=== PATIENT | female | born 2000 | race Caucasian/White ===

== ENCOUNTER 2019-11-07 10:51 | Emergency (ER) | payer BC ==
--- NOTE | 2019-11-07 11:29 | EDM.PDOC ---
ED HPI GENERAL MEDICAL PROBLEM - General Stated Complaint: 7 WEEKS /BLEEDING Time Seen by Provider: 11/07/19 11:15 Source of Information: Reports: Patient, RN, RN Notes Reviewed History Limitations: Reports: No Limitations - History of Present Illness INITIAL COMMENTS - FREE TEXT/NARRATIVE: Patient presents to ER with complaint of vaginal spotting/bleeding. Patient states last menstrual period was September 20, 2019, making her approximately 7 weeks gestation. States she has had a positive test at home, but has not been seen in the clinic as of yet. Patient denies any medical past history. Patient states that she did have intercourse yesterday. Patient states it has been some light bleeding, states she has not been wearing a pad or soaking a pad. Patient states she first had some brown thick discharge, and then the bleeding was a little more bright. Patient states this is her first . Denies any STIs in the past, states she has had 1 partner. Onset: Today ED ROS GENERAL - Review of Systems Review Of Systems: Comprehensive ROS is negative, except as noted in HPI. ED EXAM - Physical Exam Exam: See Below Exam Limited By: No Limitations General Appearance: Alert, WD/WN, No Apparent Distress Eye Exam: Bilateral Eye: EOMI, Normal Inspection Ears: Normal External Exam, Hearing Grossly Normal Nose: Normal Inspection Throat/Mouth: Normal Inspection, Normal Voice, No Airway Compromise Head: Atraumatic, Normocephalic Neck: Normal Inspection, Supple, Non-Tender, Full Range of Motion Respiratory/Chest: No Respiratory Distress, Lungs Clear, Normal Breath Sounds, No Accessory Muscle Use, Chest Non-Tender Cardiovascular: Normal Peripheral Pulses, Regular Rate, Rhythm, No Edema, No Gallop, No JVD, No Murmur, No Rub GI/Abdominal Exam: Normal Bowel Sounds, Soft, Non-Tender, No Organomegaly, No Distention, No Abnormal Bruit, No Mass, Pelvis Stable Rectal Exam: Deferred (Female) Exam: Normal External Exam, Normal Speculum Exam, Vaginal Bleeding ( very scant bright red blood at the cervix) Heart Tones: Not Potter Movement: Not Appreciated Back Exam: Normal Inspection, Full Range of Motion, NT Extremities: Normal Inspection, Normal Range of Motion, Non-Tender, Normal Capillary Refill, No Pedal Edema Neurological: Alert, Oriented, CN II-XII Intact, Normal Cognition, Normal Gait, Normal Reflexes, No Motor/Sensory Deficits Psychiatric: Normal Affect, Normal Mood Skin Exam: Warm, Dry, Intact, Normal Color, No Rash Lymphatic: No Adenopathy Course - Vital Signs Last Recorded V/S: Last Vital Signs Temp 98.1 F 11/07/19 11:33 Pulse 95 11/07/19 11:33 Resp 18 11/07/19 11:33 BP 138/88 11/07/19 11:33 Pulse Ox 99 11/07/19 11:33 - Orders/Labs/Meds Labs: Laboratory Tests 11/07/19 11/07/19 11/07/19 Range/Units 11:00 11:00 11:00 WBC (5.0-10.0) 10^3/uL RBC (4.2-5.4) 10^6/uL Hgb (12.0-16.0) g/dL Hct (37.0-47.0) % MCV (80-100) fL MCH (27.0-34.0) pg MCHC (33.0-35.0) g/dL Plt Count (150-450) 10^3/uL Neut % (Auto) (42.2-75.2) % Lymph % (Auto) (20.5-50.1) % [place] % (Auto) (2-8) % Eos % (Auto) (1.0-3.0) % Baso % (Auto) (0.0-1.0) % Sodium (136-145) mmol/L Potassium (3.5-5.1) mmol/L Chloride (98-107) mmol/L Carbon Dioxide (21-32) mmol/L Anion Gap (7-13) mEq/L BUN (7-18) mg/dL Creatinine (0.55-1.02) mg/dL Est Cr Clr Drug Dosing mL/min Estimated GFR (MDRD) BUN/Creatinine Ratio (No establ ref range) Glucose (74-99) mg/dL Calcium (8.5-10.1) mg/dL Total Bilirubin (0.2-1.0) mg/dL AST (15-37) U/L ALT (14-59) U/L Alkaline Phosphatase (46-116) U/L Total Protein (6.4-8.2) g/dL Albumin (3.4-5.0) g/dL Globulin Albumin/Globulin Ratio HCG, Quant (0-6) mIU/mL Urine Color Yellow (YELLOW) Urine Appearance Cloudy (CLEAR) Urine pH 6.5 (5.0-9.0) Ur Specific [employer] 1.025 (1.005-1.030) Urine Protein Trace H (NEGATIVE) Urine Glucose (UA) Negative (NEGATIVE) Urine Ketones Negative (NEGATIVE) Urine Occult Blood Small H (NEGATIVE) Urine Nitrite Negative (NEGATIVE) Urine Bilirubin Negative (NEGATIVE) Urine Urobilinogen 0.2 (0.2-1.0) mg/dL Ur Leukocyte Esterase Large H (NEGATIVE) Urine RBC 0-5 /HPF Urine WBC Semi-packed H (0-5/HPF) /HPF Ur Epithelial Cells Few (NOT SEEN) /HPF Urine Bacteria Many H (0-FEW/HPF) /HPF Urine Mucus Not seen (NOT SEEN) /LPF Urine HCG, Qual Positive Urine Opiates Screen Negative (NEGATIVE) Ur Oxycodone Screen Negative (NEGATIVE) Urine Methadone Screen Negative (NEGATIVE) Ur Barbiturates Screen Negative (NEGATIVE) U Tricyclic Antidepress Negative (NEGATIVE) Ur Phencyclidine Scrn Negative (NEGATIVE) Ur Amphetamine Screen Negative (NEGATIVE) U Methamphetamines Scrn Negative (NEGATIVE) Urine MDMA Screen Negative (NEGATIVE) U Benzodiazepines Scrn Negative (NEGATIVE) Urine Cocaine Screen Negative (NEGATIVE) U Marijuana (THC) Screen Negative (NEGATIVE) 11/07/19 11/07/19 11/07/19 Range/Units 11:43 11:43 11:43 WBC 8.8 (5.0-10.0) 10^3/uL RBC 4.44 (4.2-5.4) 10^6/uL Hgb 13.5 (12.0-16.0) g/dL Hct 38.8 (37.0-47.0) % MCV 87.4 (80-100) fL MCH 30.4 (27.0-34.0) pg MCHC 34.8 (33.0-35.0) g/dL Plt Count 198 (150-450) 10^3/uL Neut % (Auto) 74.0 (42.2-75.2) % Lymph % (Auto) 18.3 L (20.5-50.1) % [place] % (Auto) 7.3 (2-8) % Eos % (Auto) 0.3 L (1.0-3.0) % Baso % (Auto) 0.1 (0.0-1.0) % Sodium 134 L (136-145) mmol/L Potassium 3.6 (3.5-5.1) mmol/L Chloride 100 (98-107) mmol/L Carbon Dioxide 27 (21-32) mmol/L Anion Gap 10.6 (7-13) mEq/L BUN 14 (7-18) mg/dL Creatinine 0.96 (0.55-1.02) mg/dL Est Cr Clr Drug Dosing 87.51 mL/min Estimated GFR (MDRD) > 60 BUN/Creatinine Ratio 14.6 (No establ ref range) Glucose 88 (74-99) mg/dL Calcium 9.4 (8.5-10.1) mg/dL Total Bilirubin 0.3 (0.2-1.0) mg/dL AST 16 (15-37) U/L ALT 26 (14-59) U/L Alkaline Phosphatase 73 (46-116) U/L Total Protein 7.2 (6.4-8.2) g/dL Albumin 3.9 (3.4-5.0) g/dL Globulin 3.3 Albumin/Globulin Ratio 1.2 HCG, Quant 06825 H (0-6) mIU/mL Urine Color (YELLOW) Urine Appearance (CLEAR) Urine pH (5.0-9.0) Ur Specific [employer] (1.005-1.030) Urine Protein (NEGATIVE) Urine Glucose (UA) (NEGATIVE) Urine Ketones (NEGATIVE) Urine Occult Blood (NEGATIVE) Urine Nitrite (NEGATIVE) Urine Bilirubin (NEGATIVE) Urine Urobilinogen (0.2-1.0) mg/dL Ur Leukocyte Esterase (NEGATIVE) Urine RBC /HPF Urine WBC (0-5/HPF) /HPF Ur Epithelial Cells (NOT SEEN) /HPF Urine Bacteria (0-FEW/HPF) /HPF Urine Mucus (NOT SEEN) /LPF Urine HCG, Qual Urine Opiates Screen (NEGATIVE) Ur Oxycodone Screen (NEGATIVE) Urine Methadone Screen (NEGATIVE) Ur Barbiturates Screen (NEGATIVE) U Tricyclic Antidepress (NEGATIVE) Ur Phencyclidine Scrn (NEGATIVE) Ur Amphetamine Screen (NEGATIVE) U Methamphetamines Scrn (NEGATIVE) Urine MDMA Screen (NEGATIVE) U Benzodiazepines Scrn (NEGATIVE) Urine Cocaine Screen (NEGATIVE) U Marijuana (THC) Screen (NEGATIVE) Departure - Departure Time of Disposition: 14:05 Disposition: Home, Self-Care 01 Condition: Fair Clinical Impression: First-trimester bleeding, Threatened UTI (urinary tract infection) Qualifiers: Urinary tract infection type: acute cystitis Hematuria presence: without hematuria Qualified Code(s): N30.00 - Acute cystitis without hematuria - Discharge Information *PRESCRIPTION DRUG MONITORING PROGRAM REVIEWED*: No *COPY OF PRESCRIPTION DRUG MONITORING REPORT IN PATIENT SHAKIR: No Instructions: Urinary Tract Infection, Adult, [id number], Threatened Miscarriage, [id number], Vaginal Bleeding During , First Trimester, [id number] Referrals: PCP,None [Ordering Only Provider] - Forms: ED Department Discharge Additional Instructions: RX: Cephalexin Drink plenty of water May use Tylenol as directed for cramping or pain Follow up with your primary care facility Return to ER if bleeding increases Sepsis Event Note - Focused Exam Date Exam was Performed: 11/10/19 Time Exam was Performed: 13:19
[2019-11-07 12:11] LABS: ANION GAP 10.6 mEq/L (7-13); CHLORIDE,CL 100 mmol/L (98-107); SODIUM,NA 134 mmol/L (136-145)
--- NOTE | 2019-11-07 13:57 | US ---
EXAMINATION: OB Ltd 1 or More Fetus SEX: Female AGE: 19 years CLINICAL HISTORY: 19-year-old "gravid" (serum hCG 86,551) female emergency department (ER) with vaginal bleeding. LMP 20 September 2019 and estimated date of delivery is 26 June 2020. Interpretation: Midline uterus retroverted with clearly demonstrated central gestational sac that measures 2.29 cm (7 weeks 3 days). Viable IUP with [place]-rump length measurement 6.4 mm approximates a 6 week 4 day gestation. Regular rapid heart rate 152 bpm documented. Yolk sac present. Tiny 1.2 cm diameter cyst right adnexa may represent corpus luteum of . Right ovary measures 3.5 cm L x 2.9 cm W x 2.5 cm AP. Left ovary measures 2.8 cm L x 2.3 cm W x 1.9 cm AP. No free fluid in the cul-de-sac. CONCLUSION: Single live 6 week 4 day intrauterine gestation retroverted uterus.
== END 2019-11-07 14:03 | disposition home or self-care (01) ==
LOC: DL.ED 10:51
DX: O20.0 Threatened abortion (principal); O23.11 Infections of bladder in pregnancy, first trimester; Z3A.01 Less than 8 weeks gestation of pregnancy
CPT/HCPCS: 36415; 76815; 80053; 80305-QW; 81001; 81025; 84702; 85025; 87086; 87088; 87186; 87210; 99284-25

== ENCOUNTER 2020-02-07 15:47 | Emergency (ER) | payer BC ==
[2020-02-07] MEDS ORDERED: cefTRIAXone 1 GM, Lidocaine 1% 2.1 ML IM ONE ×2 (17:01)
--- NOTE | 2020-02-07 17:06 | EDM.PDOC ---
Scribed by Cherelle Abrams 02/07/20 [id number] for Sharad Fernandez MD ED HPI GENERAL MEDICAL PROBLEM - General Chief Complaint: Flank Pain Stated Complaint: RIGHT KIDNEY PAIN 20 WEEKS PREG [phone] Time Seen by Provider: 02/07/20 16:15 Source of Information: Reports: Patient, RN, RN Notes Reviewed History Limitations: Reports: No Limitations - History of Present Illness INITIAL COMMENTS - FREE TEXT/NARRATIVE: Patient presents to ED by POV with right kidney/flank pain that began yesterday. Patient reports history of right kidney surgeries/health issues. Patient reports she is exactly 20 weeks , first . FHR doppler @ 168. Patient reports UTI 2 weeks ago, finished antibiotics, admits to some dysuria Onset Date: 02/06/20 Duration: Constant Location: Reports: Other (right flank) Quality: Reports: Ache Severity: Moderate Improves with: Reports: None Worsens with: Reports: None Associated Symptoms: Reports: No Other Symptoms Right Flank Pain Score (Numeric/FACES): 8 ED ROS GENERAL - Review of Systems Review Of Systems: Comprehensive ROS is negative, except as noted in HPI. ED EXAM, RENAL/ - Physical Exam Exam: See Below Exam Limited By: No Limitations General Appearance: Alert, WD/WN, No Apparent Distress Eye Exam: Bilateral Eye: Normal Inspection Nose: Normal Inspection Throat/Mouth: Normal Inspection Head: Atraumatic, Normocephalic Respiratory/Chest: No Respiratory Distress Cardiovascular: Regular Rate, Rhythm, No Edema GI/Abdominal: Normal Bowel Sounds, Soft, Non-Tender, Other (Gravid to level of umbilicus. heart tones 168 by hand held doppler.) (Female) Exam: Deferred Rectal (Female) Exam: Deferred Back Exam: CVA Tenderness (R). No: CVA Tenderness (L), Vertebral Tenderness Extremities: Normal Inspection Neurological: Alert, Oriented, No Motor/Sensory Deficits Psychiatric: Normal Mood Skin Exam: Warm, Dry, Intact, Normal Color, No Rash Course - Vital Signs Last Recorded V/S: Last Vital Signs Temp 99.1 F 02/07/20 16:07 Pulse 102 H 02/07/20 16:07 Resp 18 02/07/20 16:07 BP 135/84 02/07/20 16:07 Pulse Ox 100 02/07/20 16:07 - Orders/Labs/Meds Orders: Active Orders 24 hr Category Date Time Status CBC WITH AUTO DIFF [HEME] Stat Lab 02/07/20 16:39 Received COMPREHENSIVE METABOLIC PN,CMP [CHEM] Stat Lab 02/07/20 16:39 Received CULTURE URINE [RM] Stat Lab 02/07/20 16:29 Received Labs: Laboratory Tests 02/07/20 Range/Units 16:29 Urine Color Yellow (YELLOW) Urine Appearance Cloudy (CLEAR) Urine pH 7.0 (5.0-9.0) Ur Specific [place] >= 1.030 (1.005-1.030) Urine Protein >=300 H (NEGATIVE) Urine Glucose (UA) Negative (NEGATIVE) Urine Ketones Negative (NEGATIVE) Urine Occult Blood Moderate H (NEGATIVE) Urine Nitrite Positive H (NEGATIVE) Urine Bilirubin Negative (NEGATIVE) Urine Urobilinogen 0.2 (0.2-1.0) mg/dL Ur Leukocyte Esterase Small H (NEGATIVE) Urine RBC Semi-packed H /HPF Urine WBC Semi-packed H (0-5/HPF) /HPF Ur Epithelial Cells Few (NOT SEEN) /HPF Urine Bacteria Moderate H (0-FEW/HPF) /HPF Urine Mucus Few H (NOT SEEN) /LPF Meds: Medications Discontinued Medications Generic Name Dose Route Start Last Admin Trade Name Freq PRN Reason Stop Dose Admin Ceftriaxone Sodium 1 gm/ 0 gm 02/07/20 17:01 Lidocaine HCl 2.1 ml IM 02/07/20 17:02 ONETIME ONE Departure - Departure Time of Disposition: 17:04 Disposition: Home, Self-Care 01 Condition: Good Clinical Impression: Pyelonephritis affecting in second trimester - Discharge Information *PRESCRIPTION DRUG MONITORING PROGRAM REVIEWED*: Not Applicable *COPY OF PRESCRIPTION DRUG MONITORING REPORT IN PATIENT SHAKIR: Not Applicable Instructions: Pyelonephritis During Forms: ED Department Discharge Additional Instructions: Rx: Cephalexin 500mg Drink plenty of water. Follow up with Dr. Casiano as scheduled. Return to ER if worse at any time. Sepsis Event Note (ED) - Evaluation Sepsis Screening Result: No Definite Risk - Focused Exam Vital Signs: Vital Signs Temp Pulse Resp BP Pulse Ox 02/07/20 16:07 99.1 F 102 H 18 135/84 100 - My Orders Last 24 Hours: My Active Orders 02/07/20 16:29 CULTURE URINE [RM] Stat 02/07/20 16:39 CBC WITH AUTO DIFF [HEME] Stat COMPREHENSIVE METABOLIC PN,CMP [CHEM] Stat - Assessment/Plan Last 24 Hours: My Active Orders 02/07/20 16:29 CULTURE URINE [RM] Stat 02/07/20 16:39 CBC WITH AUTO DIFF [HEME] Stat COMPREHENSIVE METABOLIC PN,CMP [CHEM] Stat I have read and agree with the documentation that has been completed regarding this visit. By signing this record, I attest that the documentation was completed in my physical presence and is an accurate record of the encounter.
[2020-02-07 17:34] LABS: ANION GAP 13.6 mEq/L (7-13); CHLORIDE,CL 99 mmol/L (98-107); SODIUM,NA 135 mmol/L (136-145)
== END 2020-02-07 17:28 | disposition home or self-care (01) ==
LOC: DL.ED 15:47
DX: O23.02 Infections of kidney in pregnancy, second trimester (principal); N12 Tubulo-interstitial nephritis, not specified as acute or chronic; Z3A.20 20 weeks gestation of pregnancy
CPT/HCPCS: 36415; 80053; 81001; 85025; 87086; 96372; 99284; J0696; J2001; 99283

== ENCOUNTER 2020-06-27 04:07 | Inpatient (IN) | payer BC ==
[2020-06-27] MEDS ORDERED: Carboprost Tromethamine 250 MCG/1 ML Amp IM PRN (05:13)
[2020-06-27] MEDS ORDERED: Lactated Ringers 1,000 ML IV ONE (05:13)
[2020-06-27] MEDS ORDERED: Methylergonovine 0.2 MG/1 ML Amp IM PRN (05:13)
[2020-06-27] MEDS ORDERED: Sodium Chloride 0.9% 10 ML Syringe FLUSH PRN (05:13)
[2020-06-27] MEDS ORDERED: fentaNYL 100 MCG/2 ML SDV IVPUSH PRN (05:13)
[2020-06-27] MEDS ORDERED: Misoprostol 400 MCG (4 X 100 MCG TAB) RECTAL PRN (05:13)
[2020-06-27] MEDS ORDERED: Acetaminophen 325 MG Tab PO PRN (05:13)
[2020-06-27] MEDS ORDERED: Tranexamic Acid 1,000 MG in Sodium Chloride 0.9% 100 ML IV PRN (05:13)
[2020-06-27] MEDS ORDERED: Lidocaine 1% 30 ML SDV INJECT PRN (05:13)
[2020-06-27] MEDS ORDERED: Ondansetron 4 MG/2 ML SDV IVPUSH PRN (05:13)
[2020-06-27] MEDS ORDERED: Oxytocin/Normal Saline 30 UNIT/500 ML BAG IV SCH (05:15)
[2020-06-27] MEDS: Lactated Ringers 1,000 ML IV SCH ×6 (05:35→20:29)
[2020-06-27] MEDS ORDERED: Magnesium Sulfate/Water 4 GM/100 ML BAG IV ONE (05:57)
--- NOTE | 2020-06-27 05:59 | OBOUT ---
DATE: 06/27/2020 TIME: 4:20 to 4:40 REASON FOR NST: 1. Intrauterine at 40-1/7 weeks confirmed with 6-4/7 week ultrasound. 2. Active labor with contractions and cervical change. 3. Gestational hypertension versus transient hypertension versus preeclampsia. 4. Meconium-stained fluid after artificial rupture of membranes. 5. GBS negative. 6. G1, P0. NST INTERPRETATION: During this time period, heart tone baseline is approximately 135 to 140 and at least two 15 x 15 beats per minute accelerations, making this strip reactive. Also, noted to be reassuring. Tocometer reveals potential 7 to 8 contractions felt by the patient. ASSESSMENT: 1. Nonstress test, reactive and reassuring. 2. Tocometer reveals contractions. Blood pressure 144/73, heart rate 93, the patient is afebrile. She is breathing through her contractions. Shortly after NST was performed, vaginal exam revealed her to be 4.5 cm with 100% effacement, +1 station, vertex suspected. Artificial rupture of membranes done after discussion with the patient while she was using her nitrox for the vaginal exam revealing meconium-stained fluid. history and physical updated from epic visit which was yesterday and includes now having contractions every 2.5 minutes starting at 2 am and worsening over time without bleeding, leaking, headaches, visual changes or upper abdominal pain or nausea, vomiting fatigue. PLAN: We will do PIH panel due to the elevated blood pressure. Artificial rupture of membranes was done as above. She is continuing with nitrox for pain control and we will discuss future pain control as needed. The patient understands, agrees to above treatment plan. Please see orders for further details. [facility] /[id number] MTDD
[2020-06-27] MEDS ORDERED: Magnesium Sulfate/Water 100 ML IV ONE (06:15)
[2020-06-27] MEDS: Magnesium Sulfate/Water 20 GM/500 ML BAG IV SCH ×2 (06:39→17:01)
[2020-06-27] MEDS ORDERED: fentaNYL 100 MCG/2 ML SDV ONE (07:32)
[2020-06-27] MEDS ORDERED: EPINEPHrine 1 MG/1 ML Amp ONE ×2 (07:33→07:35)
[2020-06-27] MEDS ORDERED: fentaNYL 100 MCG/2 ML SDV ITHECAL ONE (07:35)
--- NOTE | 2020-06-27 08:19 | PCM.PRNOTE ---
- Free Text/Narrative Note: Requested to provide analgesia to full term patient in severe pain. Upon entering the room, patient is sitting on edge of bed complaining of severe abdominal/pelvic pain and discomfort. Procedure was discussed with patient including adverse outcomes and expectations. Pt consented to analgesia, SAB/IT. Pt placed into a proper sitting position. Landmarks for SAB/IT were identified and marked. Hands were washed and appropriate PPE was applied. Back was prepped with betadine x3. A sterile, transparent, fenestrated drape was applied. Excess betadine was removed. Using 3 mL of a 1% lidocaine solution, a skin wheel was placed at the L2/L3 interspace. A 24 ga (4 inch) Pencan spinal needle was inserted until positive for CSF. Negative for heme or paresthesias. Injected fentanyl 30 mcg, sufentanil 25 mcg, and 7.5 mg of a 0.75% bupivacaine solution with an epi wash. Pt was placed left lateral tilt position for approximately 20 minutes. There were zero complications or adverse outcomes. Will continue to monitor. Procedure Date & Time: 06/27/20 [id number]
[2020-06-27 10:19] LABS: ANION GAP 16.2 mEq/L (7-13); CHLORIDE,CL 103 mmol/L (98-107); SODIUM,NA 136 mmol/L (136-145)
--- NOTE | 2020-06-27 11:19 | PN ---
DATE: 06/27/2020 SUBJECTIVE: The patient is comfortable status post her intrathecal. No nausea, vomiting, headaches, visual changes, or upper abdominal pain. OBJECTIVE: VITAL SIGNS: Last blood pressure 120/71, heart rate 85. heart tones in the 130s to 140s range watching for variability. Tocometer reveals contractions every 2-1/2 to 3 minutes. LABORATORY DATA: Labs returned earlier with the [facility] panel, did reveal white cell count of 12.3, hemoglobin 12.5, platelets of 122. Creatinine of 1.2. Mag level 1.5, AST 159, and ALT of 322 with an LDH of 196. Urine protein-creatinine ratio of 380 which would correspond to 380 mg per 24 hours estimate. ASSESSMENT AND PLAN: Intrauterine at 40 and 1/7 weeks confirmed with 6 and 4/7 weeks ultrasound, admitted in active labor with preeclampsia with severe features, qualifies due to the creatinine level as well as increased LFTs, may be a HELLP variant with platelets being on the lower end but not less than 100,000 at this time. Therefore, the patient was started on magnesium sulfate and followed closely. She did receive her intrathecal. Last nurse evaluation revealed to be 7 to 8 cm. Repeat labs were done due to concerns with decreased urine output with catheter placed and a bolus was given prior to the intrathecal. Another bolus was given at the time of dictation. Repeat labs, white cell count 17.1, hemoglobin 11.7, platelets stable at 121. Creatinine actually has improved at 1.13. Mag level was 3.3. AST and ALT have decreased to 148 and 297 respectively. PLAN: We will continue to follow urine output closely. Watch for any other signs and symptoms that would be concerning and follow status closely as well. [facility] /[id number]
[2020-06-27] MEDS ORDERED: ePHEDrine 50 MG/ML SDV IVPUSH PRN (13:06)
[2020-06-27] MEDS ORDERED: ceFAZolin 2 GM in Premix Bag 1 BAG IV ONE (13:06)
[2020-06-27] MEDS ORDERED: Naloxone 2 MG/2 ML Syringe IVPUSH PRN (13:06)
[2020-06-27] MEDS ORDERED: diphenhydrAMINE 50 MG/ML SDV IVPUSH PRN (13:06)
[2020-06-27] MEDS ORDERED: Citric Acid/Sodium Citrate Solution 30 ML Cup PO ONE (13:06)
[2020-06-27] MEDS ORDERED: Oxytocin/Normal Saline 60 UNIT/1,000 ML BAG ONE (13:16)
[2020-06-27] MEDS ORDERED: Morphine PF 1 MG/ML Amp ITHECAL ONE (13:32)
[2020-06-27] MEDS ORDERED: Ondansetron 4 MG/2 ML SDV IV ONE (13:32)
[2020-06-27] MEDS ORDERED: Ketorolac 30 MG/ML SDV IVPUSH ONE (13:32)
[2020-06-27] MEDS ORDERED: Metoclopramide 10 MG/2 ML SDV IV ONE (13:32)
[2020-06-27] MEDS ORDERED: Dexamethasone 4 MG/ML SDV IV ONE (13:32)
[2020-06-27] MEDS ORDERED: Misoprostol 400 MCG (4 X 100 MCG TAB) ONE (13:53)
[2020-06-27] MEDS ORDERED: Carboprost Tromethamine 250 MCG/1 ML Amp ONE (13:53)
--- NOTE | 2020-06-27 15:31 | PN ---
DATE: 06/27/2020 SUBJECTIVE: The patient is starting to feel contractions minimally just described as cramping and tightening in her belly. She denies any headaches, visual changes, or upper abdominal pain, recent nausea, vomiting, or decreased oral intake over the last couple of days. OBJECTIVE: Vital Signs: Last temperature was 100.2. Genitourinary: Vaginal exam reveals her to have an anterior rim. heart tones in the 130s to 140s with a change in variability noted with vaginal exam. Tocometer reveals contractions every 2-1/2 to 3 minutes. ASSESSMENT AND PLAN: Nearing second stage of labor in a G1, P0 at 40 and 1/7 weeks, GBS negative, with meconium-stained fluid, gestational thrombocytopenia, and preeclampsia with severe features. We have been watching her urine output closely. She just completed a bolus of 500 mL. We will continue to follow this as well and did discuss with the patient considering pushing in the near future as she has had some difficulty with vaginal exams with pain and doing this while her intrathecal is still working. We will follow closely at this point in time. Wait until she is complete and proceed from there. [facility] /[id number]
--- NOTE | 2020-06-27 16:01 | PN ---
DATE: 06/27/2020 SUBJECTIVE: The patient has been starting to feel her contractions. She feels the urge to push and has been pushing for now over 2 hours. OBJECTIVE: heart tones: Occasional accelerations are noted with exams with heart tones in the 140s range. Tocometer reveals contractions every 2-1/2 to 4 minutes apart. Pitocin at 2 milliunits per minute, now has been stopped. Vital signs: Last blood pressure 145/73, heart rate 81, temperature 99.2. Genitourinary: Vaginal exam reveals to be complete with good pushing effort, but arrest of descent with no evidence of descent over the last 2 hours with marked caput occurring. ASSESSMENT AND PLAN: Intrauterine at 40-1/7 weeks, confirmed with 6- 4/7 weeks' ultrasound, with arrest of descent, nearing prolonged second stage of labor with preeclampsia with severe features, meconium-stained fluid, gestational thrombocytopenia in a G1, P0, who is GBS negative. I did discuss with the patient calling in the OR crew at this time and proceeding with section when they arrive as it will be nearing prolonged second stage of labor and there has been no evidence of descent despite great pushing efforts. We will continue to follow maternal- status closely in the interim. Of note, urine output has significantly increased and this was noted after a positional change with the pushing and the patient feeling a click type sensation and suspect decreased urine output related to vertex position and the Chen catheter. I did discuss with the patient and her male partner proceeding with section. They both understand agree and wish to proceed. I did discuss with them risks benefits, alternatives, and complications of section including, but not limited to, infection; bleeding; damage to organs such as bowel, bladder, tubes, uterus, ovaries, and sometimes fetus; rarely needing a blood transfusion or further surgery; and even rare maternal or . She understands and agrees and wished to proceed. Verbal and written consents were obtained and questions were answered. We will proceed to the OR as soon as crew is ready and available. [facility] /[id number] DONAOT
[2020-06-27] MEDS: Simethicone 80 MG Tab.Chew PO SCH ×2 (18:10→20:28)
[2020-06-27] MEDS: Ketorolac 30 MG/ML SDV IVPUSH SCH (19:52)
[2020-06-27] MEDS: Docusate Sodium 100 MG Cap PO PRN (20:28)
[2020-06-28] MEDS: Ketorolac 30 MG/ML SDV IVPUSH SCH ×2 (01:47→07:58)
[2020-06-28] MEDS: Magnesium Sulfate/Water 20 GM/500 ML BAG IV SCH (04:53)
[2020-06-28] MEDS: Docusate Sodium 100 MG Cap PO PRN ×2 (07:58→21:01)
[2020-06-28] MEDS: Prenatal Multivitamin with Calcium/Folic Acid/Iron Tab PO SCH ×2 (07:58→09:02)
[2020-06-28] MEDS: Ferrous Sulfate 325 MG Tab PO SCH (07:58)
[2020-06-28] MEDS: Simethicone 80 MG Tab.Chew PO SCH ×4 (07:59→21:01)
[2020-06-28] MEDS: Acetaminophen/oxyCODONE 325-5 MG Tab PO PRN ×4 (08:15→21:01)
[2020-06-28 12:29] LABS: ANION GAP 11.3 mEq/L (7-13)
[2020-06-28] MEDS ORDERED: Benzocaine/Menthol 20%-0.5% Spray 56 GM Canister TOP PRN (16:30)
[2020-06-28] MEDS: Ibuprofen 800 MG Tab PO PRN (16:52)
[2020-06-29] MEDS: Acetaminophen/oxyCODONE 325-5 MG Tab PO PRN ×5 (01:27→22:12)
[2020-06-29] MEDS: Ibuprofen 800 MG Tab PO PRN ×3 (01:27→22:06)
--- NOTE | 2020-06-29 03:38 | PN ---
DATE: 06/28/2020 Postop day #1. SUBJECTIVE: The patient is tolerating p.o. Has not ambulated much because of being on magnesium sulfate. Chen is still in place. States pain is under control. Denies any headaches, visual changes, upper abdominal pain, chest pain, shortness of breath, or lightheadedness. No immediate concerns by nurses overnight and through this morning. OBJECTIVE: VITAL SIGNS: Temperature 98.2, heart rate 82, blood pressure 106/64, respiratory rate 16. LUNGS: Clear to auscultation bilaterally. HEART: S1 and S2. Regular rate and rhythm. ABDOMEN: Firm uterus around the umbilicus. Aquacel dressing appears minimally shadowed on the right, which has been stable since last night. EXTREMITIES: Trace pedal edema. No calf pain. KARLA hose are on. I's and O's, Chen output has been adequate and excellent. LABORATORY DATA: This morning white cell count 12.6, hemoglobin 8.4, platelets 112. Recheck at noon; white cell count 11.6, hemoglobin 8.9, and platelets 116. With afternoon labs revealing a creatinine stable at 1.2, uric acid elevated 7.1, magnesium level of 4.9, AST and ALT 151 and 233 which are stable. Ammonia less than 10. LDH at 241. ASSESSMENT AND PLAN: Postop day #1, status post primary low-transverse C- section with 2-layer uterine closure, with arrest of descent nearing prolonged second stage of labor, and subsequent macrosomia with the baby weighing 10 pounds and 14 ounces, with severe preeclampsia/HELLP variant. I's and O's have been adequate. She is nearing 24 hours from delivery. We will stop magnesium sulfate. Follow for signs and symptoms of concerns with the preeclampsia and we will do serial labs with repeat labs tomorrow morning, with the CBC, CMP to follow. I did discuss plans with the patient. She understands and agrees with the above treatment plan. We will follow clinically and closely. [facility] /[id number]
[2020-06-29] MEDS: Prenatal Multivitamin with Calcium/Folic Acid/Iron Tab PO SCH (08:03)
[2020-06-29] MEDS: Ferrous Sulfate 325 MG Tab PO SCH (08:03)
[2020-06-29] MEDS: Simethicone 80 MG Tab.Chew PO SCH ×4 (08:03→22:05)
[2020-06-29] MEDS: Docusate Sodium 100 MG Cap PO PRN ×2 (08:03→22:05)
--- NOTE | 2020-06-29 13:53 | PN ---
DATE: 06/29/2020 SUBJECTIVE: The patient is tolerating p.o., was ambulating, urinating, passing flatus. She denies any headaches, visual changes, or upper abdominal pain. Her lower extremity swelling/ankle swelling persists. OBJECTIVE: Vital Signs: Temperature 92, heart rate 90, blood pressure 122/80, and respiratory rate 16. Lungs: Clear to auscultation bilaterally. Heart: S1, S2. Regular rate and rhythm. Pelvic: Firm uterus at the umbilicus. Aquacel dressing reveals continued shadowing on the right, nothing increasing in size. Otherwise, dry and intact. Urine output has been adequate. Extremities: Trace pedal edema. KARLA hose on. LABORATORY DATA: White cell count 10.1, hemoglobin 8.4, stable from yesterday, platelets increased to 118,000. CMP was done, notable for creatinine at 1.29. AST decreasing down to 103, ALT down to 197, alkaline phosphatase down to 130. ASSESSMENT/PLAN: Postop day #2, status post primary low transverse with 2-layer uterine closure complicated by suspected HELLP syndrome with variant with severe preeclampsia, gestational thrombocytopenia, increased liver function tests, and increased creatinine. I did discuss this with the patient. Creatinine still is hovering around 1.2 range. 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 Therefore, we will continue to follow closely. Urine output has been adequate. No other signs or symptoms of issues with kidneys and her GFR is rated around 67 to 72 by lab criteria. PLAN: We will continue to follow clinically and closely. CBC and CMP tomorrow. Possible discharge tomorrow discussed. She understands and agrees with the above treatment plan. [facility] /[id number]
[2020-06-30 06:14] LABS: ANION GAP 13.2 mEq/L (7-13); CHLORIDE,CL 105 mmol/L (98-107); SODIUM,NA 138 mmol/L (136-145)
[2020-06-30] MEDS: Acetaminophen/oxyCODONE 325-5 MG Tab PO PRN ×2 (06:39→11:18)
[2020-06-30] MEDS: Docusate Sodium 100 MG Cap PO PRN (08:01)
[2020-06-30] MEDS: Ferrous Sulfate 325 MG Tab PO SCH (08:01)
[2020-06-30] MEDS: Prenatal Multivitamin with Calcium/Folic Acid/Iron Tab PO SCH (08:01)
[2020-06-30] MEDS: Simethicone 80 MG Tab.Chew PO SCH ×2 (08:01→15:02)
[2020-06-30] MEDS ORDERED: Oxytocin/Normal Saline 30 UNIT/500 ML BAG IV ONE (15:44)
--- NOTE | 2020-06-30 19:35 | DISCH ---
ADMITTING DIAGNOSES: 1. Intrauterine at 40-1/7 weeks confirmed with 6-4/7-week ultrasound. 2. Active labor upon admission. 3. Preeclampsia with severe features with increased LFTs and thrombocytopenia with suspected HELLP variant. 4. Group B Streptococcus negative. 5. G1, P0. DISCHARGE DIAGNOSES: 1. Intrauterine at 40-1/7 weeks confirmed with 6-4/7 week ultrasound. 2. Active labor upon admission. 3. Preeclampsia with severe features with increased LFTs and thrombocytopenia with suspected HELLP variant. 4. Group B Streptococcus negative. 5. G1, P0. 6. Arrest of descent. 7. Nearing prolonged 2nd stage of labor. 8. Hematuria noted prior to her . 9. Macrosomia with a weight of 10 pounds 14 ounces. 10.Uterine atony requiring Hemabate. 11.Anemia of acute blood loss, hemoglobin dropping from 12.5 to 8.4, postop day #1. 12.Increased creatinine and LFTs. Upon discharge with creatinine being 1.04, AST being 168, ALT 266. 13.Thrombocytopenia improving with platelets of 141,000 upon discharge. PROCEDURES PERFORMED: NST, artificial rupture of membranes, and primary low transverse on 06/27/[address] Casiano. HISTORY OF PRESENT ILLNESS: Please see H and P. SUMMARY OF HOSPITAL COURSE: The patient admitted on the above date with above diagnosis in active labor. Had preeclampsia severe features with thrombocytopenia, increased LFTs, and a creatinine of greater than 1.2 upon admission. Subsequently, magnesium sulfate was started as soon as labs returned. She continued in labor, was complete and then pushed for over 2 hours. Had arrest of descent and was nearing prolonged 2nd stage of labor with above risk factors, and she subsequently underwent a primary low-transverse C- section, 2 layer uterine closure, yielding a male with score 9 and 9, weighing 10 pounds 14 ounces. Please see operative report for further details. EBL 500 mL. Postop day 1 and 2, please see progress notes. She was followed closely. Platelets did improve on date of discharge, her creatinine hovered around 1.2, 1.29, and then upon discharge was 1.04. Her LFTs hung around the 103 to 168 range and 200 to 266 range for AST and ALT respectively. DISCHARGE EVALUATION: The patient was tolerating p.o., was ambulating, urinating, passing flatus, requesting discharge. No headaches, visual changes, or upper abdominal pain. No chest pain, shortness of breath, or lightheadedness. She did have her hemoglobin drop to 8.4 postop day #1. OBJECTIVE: Vital Signs: Temperature 98.9, heart rate 84, blood pressure 137/84, respiratory rate 16. Lungs: Clear to auscultation bilaterally. Heart: S1, S2. Regular rate and rhythm. Abdomen: Firm uterus, -1 below umbilicus. Aquacel dressing persistent shadowing on the right, nothing increasing in size since postop day #1, otherwise dry and intact. Extremities: Trace pedal edema. No calf pain. LABORATORY DATA: White cell count 8.7, hemoglobin 8.9, platelets 141,000. CMP done remarkable for creatinine, improving at 1.04. AST 168, ALT 266. CONDITION ON DISCHARGE COMPARED TO CONDITION ON ADMISSION: Improved. DISCHARGE INSTRUCTIONS: Diet: As tolerated. Activity: No lifting more than 20 pounds. No sit-ups or straining and pelvic rest for the next 6 weeks, with immediate return to fertility discussed with patient. Reasons to return or go to the emergency room were discussed with the patient in detail including but not limited to, temperature greater than 100.4, foul- smelling discharge, red or tender breasts, or increased vaginal bleeding, or increasing pain, drainage, or redness around the incision. DISCHARGE MEDICATIONS: [id number] Tylenol as needed for pain. Defer Motrin at this point in time given her creatinine. We will write a script for Percocet 5/325 mg 1 to 2 q.6 hours p.r.n., #30, no refills, as well as did discuss with her the side effects of this medication and not driving with this medication as well. Colace 100 mg b.i.d. p.r.n., #60, no refills. FOLLOW UP: On 07/04/2020 for staple removal with her baby at the same time. Did discuss with her reason to go to the emergency room in regard to her baby as well. She understands and agrees with the above treatment plan. Please see discharge paperwork for further details as well. [facility] /[id number]
--- NOTE | 2020-07-01 07:46 | OR ---
DATE: 06/27/2020 PREOPERATIVE DIAGNOSES: 1. Intrauterine 40 and 1/7 weeks, confirmed with 6 and 4/7 weeks' ultrasound. 2. Arrest of descent. 3. Nearing prolonged 2nd stage of labor. 4. Hematuria noted prior to surgery with Chen catheter placement in the 2nd stage of labor. 5. Preeclampsia with severe features. 6. Possible hemolysis, elevated liver enzymes, and low platelet count variant with gestational thrombocytopenia, platelets of 122,000, and increased LFTs. 7. Meconium-stained fluid. 8. Group B streptococcus negative. 9. G1, P0. POSTOPERATIVE DIAGNOSES: 1. Intrauterine 40 and 1/7 weeks, confirmed with 6 and 4/7 weeks' ultrasound; delivered. 2. Arrest of descent. 3. Nearing prolonged 2nd stage of labor. 4. Hematuria noted prior to surgery with Chen catheter placement in the 2nd stage of labor. 5. Preeclampsia with severe features. 6. Possible hemolysis, elevated liver enzymes, and low platelet count variant with gestational thrombocytopenia, platelets of 122,000, and increased LFTs. 7. Meconium-stained fluid. 8. Group B streptococcus negative. 9. G1, P0. 10.Macrosomia with weight of 10 pounds 14 ounces. 11.Uterine atony requiring Hemabate. PROCEDURE PERFORMED: Nonstress test followed by artificial rupture of membranes and then subsequent primary low transverse with 2-layer uterine closure. ANESTHESIA: Spinal. RAIL ENGINEER: Haleigh Mercer PGY-III ESTIMATED BLOOD LOSS: 500 mL. IV FLUIDS: 1500 mL. URINE OUTPUT: 1050 mL, will and dark colored with possible hematuria. TIME: Start 1347; uterine 1349; delivery 1350; stop 1408. FINDINGS: Male, score 9 and 9, weighing 10 pounds 14 ounces. DESCRIPTION OF PROCEDURE: After proper consent was obtained, the patient was brought to the operating room where spinal anesthetic was administered. A Chen was placed in preop under sterile conditions. Abdomen was prepped and draped in normal sterile fashion with patient placed in supine position with left lateral tilt. Chen catheter was placed prior to arriving in the OR when she was nearing the 2nd stage of labor and noted to have hematuria with pushing. A skin incision was then made over lower abdomen in transverse Pfannenstiel-type fashion. This was carried down to the fascia and scored in the midline. Subcutaneous tissue was raked with Nolasco retractor and fascial incision was extended in transverse fashion using curved Diego's. Ashley clamps x2 were used to grasp the superior aspect of fascia and rectus muscles dissected from the fascia using sharp and blunt technique. In a similar fashion, Ashley clamps x2 were used to grasp the inferior portion of the incision, and rectus and pyramidalis muscles were dissected from the fascia using sharp and blunt technique. Rectus muscles were in the midline in blunt technique. Abdominal cavity was entered in blunt technique. Incision was extended superiorly and inferiorly in blunt technique. John O large retractor was then introduced and used. Vesicouterine peritoneum was identified, incised in transverse fashion with Metzenbaum scissors and bladder flap was made digitally. A curvilinear incision was made on lower uterine segment at 1349 hours. Uterus was entered sharply. Meconium-stained fluid returned. Uterine incision was then extended in a transverse fashion using blunt technique. vertex was then delivered up from the pelvis through the incision followed by rest of the without difficulty. Mouth and nares were suctioned. Cord was doubly clamped and cut. Infant was brought to team. Then, approximately 10 mL of cord blood was obtained for labs. Placenta was then delivered with gentle cord traction and fundal massage. Uterine cavity was then cleared of all blood clots and debris with lap sponge. Garcia clamps were used to grasp the uterine incision. This was closed in a running locked fashion and tied at lateral margins with 1-0 Vicryl. Uterine atony was noted at this time and Hemabate was called for and given. Second imbricating layer was applied to the uterine incision, tied at lateral margins with 1-0 Vicryl. First inspection of the uterine incision revealed hemostasis. John O retractor was then removed and paracolic gutters were then cleared of all blood clots and debris with lap sponge. Anterior cul-de-sac was then irrigated copiously and all blood clots removed. Second and final inspection of the uterine incision and anterior cul-de-sac revealed hemostasis. Rectus muscles were then reapproximated in midline with [id number] stitch of 1-0 Vicryl. Subfascial tissues were found to be hemostatic. Fascia was closed in a running fashion and tied at lateral margins with 0 looped PDS. Subcutaneous tissue irrigated copiously. Hemostasis was reassured. Skin was reapproximated with medium rosa isela. Sterile Aquacel dressing was applied. Uterine fundus was firm and massaged at the conclusion of the case -1 below umbilicus. No immediate complications were noted. Sponge, lap, and needle counts were correct. The patient received 2 g of Ancef preoperatively, Pitocin per protocol, and will receive Toradol at conclusion of the case for pain control. Mother and are currently stable at time of dictation. [facility] /[id number]
== END 2020-06-30 15:45 | disposition home or self-care (01) | DRG 540 ==
LOC: DL.OBCHECK 04:07 → DL.OB 04:37 → OBSVTOIN 13:50
PROVIDERS: ADMIT Family Medicine; ATTEND Family Medicine
PROC: 10D00Z1 Extraction of Products of Conception, Low, Open Approach (ICD-10-PCS; principal; 2020-06-27)
PROC: 10907ZC Drainage of Amniotic Fluid, Therapeutic from Products of Conception, Via Natural or Artificial Opening (ICD-10-PCS; 2020-06-27)
PROC: 3E0R3BZ Introduction of Anesthetic Agent into Spinal Canal, Percutaneous Approach (ICD-10-PCS; 2020-06-27)
PROC: 00HU33Z Insertion of Infusion Device into Spinal Canal, Percutaneous Approach (ICD-10-PCS; 2020-06-27)
DX: O14.24 HELLP syndrome, complicating childbirth (principal); Z3A.40 40 weeks gestation of pregnancy; Z37.0 Single live birth; O99.02 Anemia complicating childbirth; D62 Acute posthemorrhagic anemia; O99.12 Other diseases of the blood and blood-forming organs and certain disorders involving the immune mechanism complicating childbirth; D69.6 Thrombocytopenia, unspecified; O62.2 Other uterine inertia; O77.0 Labor and delivery complicated by meconium in amniotic fluid; O62.1 Secondary uterine inertia; O36.63X0 Maternal care for excessive fetal growth, third trimester, not applicable or unspecified; R31.9 Hematuria, unspecified; Z28.82 Immunization not carried out because of caregiver refusal
CPT/HCPCS: 01961; 36415; 80053; 81003; 82140; 82565; 82570; 83615; 83735; 84156; 84450; 84460; 84520; 84550; 85007; 85027; 86850; 86900; 86901; A9270-GY; J0171; J0690; J1885; J2405; J2590; J3010; J3475; J7120

== ENCOUNTER 2020-07-02 22:41 | Emergency (ER) | payer BC ==
--- NOTE | 2020-07-02 23:17 | EDM.PDOC ---
ED HPI GENERAL MEDICAL PROBLEM - General Chief Complaint: Fever Stated Complaint: C SECTION, FEVER AND PAIN Time Seen by Provider: 07/02/20 23:12 Source of Information: Reports: Patient, RN History Limitations: Reports: No Limitations - History of Present Illness INITIAL COMMENTS - FREE TEXT/NARRATIVE: ED with c/o fever 1010 at home tonight. delivery via on 06/27. Notes possible fever earlier this morning. No nausea or vomiting. Achiness to right shoulder and arm, feels like pulled muscle. No fever or cough. BM today. no pain or increased frequency with voiding. Surgical incision tender on right side but has not noticed any redness or drainage. Breast feeding , Mainly pumping, no reported breast redness or significant tenderness. Right Abdomen Pain Score (Numeric/FACES): 6 - Related Data Allergies Allergy/AdvReac Type Severity Reaction Status Date / Time No Known Allergies Allergy Verified 07/02/20 23:24 Home Meds: Home Meds Pnv No.95/Ferrous Fum/Folic AC [ Vitamin Tablet] 1 tab PO DAILY 06/26/20 [History] Acetaminophen 650 mg PO DAILY PRN 07/02/20 [History] Acetaminophen/oxyCODONE [Percocet 325-5 MG] 2 tab PO Q6H 07/02/20 [History] Docusate Sodium [Colace] 100 mg PO BID 07/02/20 [History] Past Medical History - Past Health History Medical/Surgical History: Denies Medical/Surgical History HEENT History: Reports: Impaired Vision Other HEENT History: wears glasses Cardiovascular History: Reports: None Respiratory History: Reports: Asthma Other Respiratory History: exercise induced asthma Gastrointestinal History: Reports: None Genitourinary History: Reports: Pyelonephritis, UTI, Recurrent .NET ARCHITECT History: Reports: None, Musculoskeletal History: Reports: None Psychiatric History: Reports: Depression Other Psychiatric History: not currently on medication Endocrine/Metabolic History: Reports: None Hematologic History: Reports: Anemia Other Hematologic History: currently taking daily iron - Infectious Disease History Infectious Disease History: Reports: Chicken Pox, Mononucleosis - Past Surgical History Cardiovascular Surgical History: Reports: None GI Surgical History: Reports: None Female Surgical History: Reports: Other (See Below) Other Female Surgeries/Procedures: 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 Musculoskeletal Surgical History: Reports: None Dermatological Surgical History: Reports: None Social & Family History - Family History Family Medical History: No Pertinent Family History Cardiac: Reports: [place] Musculoskeletal: Reports: Arthritis Psychiatric: Reports: Depression - Caffeine Use Caffeine Use: Reports: Soda ED ROS GENERAL - Review of Systems Review Of Systems: Comprehensive ROS is negative, except as noted in HPI. ED EXAM, GENERAL - Physical Exam Exam: See Below Exam Limited By: No Limitations General Appearance: Alert, Mild Distress Ears: Normal External Exam, Hearing Grossly Normal Respiratory/Chest: No Respiratory Distress, Lungs Clear, Normal Breath Sounds Cardiovascular: Normal Peripheral Pulses, Regular Rate, Rhythm GI/Abdominal: Normal Bowel Sounds, Soft, Non-Tender (mid abd, right lower ), Other (surgical incision dryintact) Back Exam: Full Range of Motion Extremities: Normal Inspection, Normal Range of Motion Neurological: Alert, Oriented, Normal Cognition Psychiatric: Normal Affect, Normal Mood Skin Exam: Warm, Dry, Intact, Normal Color, Wound/Incision (low abdominal surgical incision, clean dry, rosa isela intact no redness.) Course - Vital Signs Last Recorded V/S: Last Vital Signs Temp 98.7 F 07/03/20 00:00 Pulse 100 07/03/20 00:00 Resp 16 07/03/20 00:00 BP 143/84 H 07/03/20 00:00 Pulse Ox 98 07/03/20 00:00 - Orders/Labs/Meds Orders: Active Orders 24 hr Category Date Time Status CULTURE BLOOD [BC] Stat Lab 07/02/20 23:08 Received Isolation [COMM] Routine Oth 07/02/20 22:55 Active Labs: Laboratory Tests 07/02/20 07/02/20 07/02/20 Range/Units 23:05 23:08 23:08 WBC 13.0 H (5.0-10.0) 10^3/uL RBC 3.50 L (4.2-5.4) 10^6/uL Hgb 11.0 L D (12.0-16.0) g/dL Hct 32.2 L (37.0-47.0) % MCV 92.0 (80-100) fL MCH 31.4 (27.0-34.0) pg MCHC 34.2 (33.0-35.0) g/dL Plt Count 261 D (150-450) 10^3/uL Neut % (Auto) 78.2 H (42.2-75.2) % Lymph % (Auto) 13.2 L (20.5-50.1) % [place] % (Auto) 7.6 (2-8) % Eos % (Auto) 0.8 L (1.0-3.0) % Baso % (Auto) 0.2 (0.0-1.0) % Add Manual Diff Yes Neutrophils % (Manual) 74 (42-75) % Lymphocytes % (Manual) 19 L (20-50) % Monocytes % (Manual) 6 (2-8) % Eosinophils % (Manual) 1 (1-3) % Sodium 138 (136-145) mmol/L Potassium 4.1 (3.5-5.1) mmol/L Chloride 101 (98-107) mmol/L Carbon Dioxide 25 (21-32) mmol/L Anion Gap 16.1 H (7-13) mEq/L BUN 15 (7-18) mg/dL Creatinine 1.16 H (0.55-1.02) mg/dL Est Cr Clr Drug Dosing 77.39 mL/min Estimated GFR (MDRD) 59 BUN/Creatinine Ratio 12.9 (No establ ref range) Glucose 99 (74-99) mg/dL Lactic Acid (0.4-2.0) mmol/L Calcium 8.9 (8.5-10.1) mg/dL Total Bilirubin 0.2 (0.2-1.0) mg/dL AST 46 H (15-37) U/L ALT 178 H (14-59) U/L Alkaline Phosphatase 153 H (46-116) U/L Total Protein 7.4 (6.4-8.2) g/dL Albumin 2.8 L (3.4-5.0) g/dL Globulin 4.6 Albumin/Globulin Ratio 0.61 Urine Color Yellow (YELLOW) Urine Appearance Slightly cloudy (CLEAR) Urine pH 7.5 (5.0-9.0) Ur Specific [place] 1.025 (1.005-1.030) Urine Protein Trace H (NEGATIVE) Urine Glucose (UA) Negative (NEGATIVE) Urine Ketones Negative (NEGATIVE) Urine Occult Blood Moderate H (NEGATIVE) Urine Nitrite Negative (NEGATIVE) Urine Bilirubin Negative (NEGATIVE) Urine Urobilinogen 0.2 (0.2-1.0) mg/dL Ur Leukocyte Esterase Negative (NEGATIVE) Urine RBC 5-10 H /HPF Urine WBC 0-5 (0-5/HPF) /HPF Ur Epithelial Cells Few (NOT SEEN) /HPF Urine Bacteria Rare (0-FEW/HPF) /HPF Urine Mucus Few H (NOT SEEN) /LPF SARS-CoV-2 RNA (BAILEY) (NEGATIVE) 07/02/20 07/02/20 Range/Units 23:08 23:10 WBC (5.0-10.0) 10^3/uL RBC (4.2-5.4) 10^6/uL Hgb (12.0-16.0) g/dL Hct (37.0-47.0) % MCV (80-100) fL MCH (27.0-34.0) pg MCHC (33.0-35.0) g/dL Plt Count (150-450) 10^3/uL Neut % (Auto) (42.2-75.2) % Lymph % (Auto) (20.5-50.1) % [place] % (Auto) (2-8) % Eos % (Auto) (1.0-3.0) % Baso % (Auto) (0.0-1.0) % Add Manual Diff Neutrophils % (Manual) (42-75) % Lymphocytes % (Manual) (20-50) % Monocytes % (Manual) (2-8) % Eosinophils % (Manual) (1-3) % Sodium (136-145) mmol/L Potassium (3.5-5.1) mmol/L Chloride (98-107) mmol/L Carbon Dioxide (21-32) mmol/L Anion Gap (7-13) mEq/L BUN (7-18) mg/dL Creatinine (0.55-1.02) mg/dL Est Cr Clr Drug Dosing mL/min Estimated GFR (MDRD) BUN/Creatinine Ratio (No establ ref range) Glucose (74-99) mg/dL Lactic Acid 1.5 (0.4-2.0) mmol/L Calcium (8.5-10.1) mg/dL Total Bilirubin (0.2-1.0) mg/dL AST (15-37) U/L ALT (14-59) U/L Alkaline Phosphatase (46-116) U/L Total Protein (6.4-8.2) g/dL Albumin (3.4-5.0) g/dL Globulin Albumin/Globulin Ratio Urine Color (YELLOW) Urine Appearance (CLEAR) Urine pH (5.0-9.0) Ur Specific [place] (1.005-1.030) Urine Protein (NEGATIVE) Urine Glucose (UA) (NEGATIVE) Urine Ketones (NEGATIVE) Urine Occult Blood (NEGATIVE) Urine Nitrite (NEGATIVE) Urine Bilirubin (NEGATIVE) Urine Urobilinogen (0.2-1.0) mg/dL Ur Leukocyte Esterase (NEGATIVE) Urine RBC /HPF Urine WBC (0-5/HPF) /HPF Ur Epithelial Cells (NOT SEEN) /HPF Urine Bacteria (0-FEW/HPF) /HPF Urine Mucus (NOT SEEN) /LPF SARS-CoV-2 RNA (BAILEY) Negative (NEGATIVE) Meds: Medications Discontinued Medications Generic Name Dose Route Start Last Admin Trade Name Freq PRN Reason Stop Dose Admin Clindamycin Phosphate 300 mg/ 52 mls @ 100 mls/hr 07/03/20 00:19 07/03/20 00:37 Sodium Chloride IV 07/03/20 00:50 100 mls/hr ONETIME ONE Administration Departure - Departure Time of Disposition: 01:07 Disposition: Home, Self-Care 01 Condition: Good Clinical Impression: Postsurgical fever, S/P - Discharge Information *PRESCRIPTION DRUG MONITORING PROGRAM REVIEWED*: No *COPY OF PRESCRIPTION DRUG MONITORING REPORT IN PATIENT SHAKIR: No Forms: ED Department Discharge Additional Instructions: Follow up in clinic in am with Dr Ramos monitor fever tylenol every 4 hours as needed for fever Use incentive Spirometer or deep breathing exercises dressiing change to surgical wound at least twice daily wash gently and pat dry - My Orders Last 24 Hours: My Active Orders 07/02/20 22:55 Isolation [COMM] Routine 07/02/20 23:08 CULTURE BLOOD [BC] Stat - Assessment/Plan Last 24 Hours: My Active Orders 07/02/20 22:55 Isolation [COMM] Routine 07/02/20 23:08 CULTURE BLOOD [BC] Stat
[2020-07-02 23:35] LABS: ANION GAP 16.1 mEq/L (7-13)
== END 2020-07-03 01:13 | disposition home or self-care (01) ==
LOC: DL.ED 22:41
DX: O86.4 Pyrexia of unknown origin following delivery (principal); O99.53 Diseases of the respiratory system complicating the puerperium; J45.909 Unspecified asthma, uncomplicated; O99.03 Anemia complicating the puerperium; Z79.899 Other long term (current) drug therapy; Z20.828 Contact with and (suspected) exposure to other viral communicable diseases
CPT/HCPCS: 36415; 80053; 81001; 83605; 85025; 87040; 87804; 96365; 99283; 99283-25; J3490; U0002